=== PATIENT | female | born 1980 | race Caucasian/White ===

== ENCOUNTER 2020-12-25 22:59 | Observation (INO) ==
[2020-12-25] MEDS ORDERED: *HR* LORazepam 2 MG/ML VIAL ONE (23:23)
[2020-12-25] MEDS ORDERED: Haloperidol Lactate 5 MG/ML VIAL IM ONE (23:24)
[2020-12-25] MEDS ORDERED: *HR* LORazepam 2 MG/ML VIAL IM ONE (23:24)
[2020-12-26 01:19] LABS: Basophils % 0.3 %; Eosinophils # 0.1 K/mcL (0.0-0.6); Eosinophils % 0.6 %; Hematocrit 41.2 % (35.3-44.9); Hemoglobin 13.7 g/dL (11.5-15.4); Immature Granulocytes % 0.2 % (0-4); Lymphocytes # 2.7 K/mcL (0.6-4.6); Lymphocytes % 25.6 %; Mean Corpuscular HGB Conc 33.3 g/dL (31.6-35.5); Mean Corpuscular Hemoglobin 29.8 pg (28.0-33.3); Mean Corpuscular Volume 89.8 fL (83.0-100.0); Mean Platelet Volume 10.3 fL (9.4-12.4); Monocytes # 0.5 K/mcL (0.0-1.3); Monocytes % 4.6 %; Neutrophils # 7.1 K/mcL (1.6-8.9); Platelet Count 278 K/mcL (140-400); Red Blood Count 4.59 M/mcL (3.82-4.97); Red Cell Distribution Width 13.5 % (11.5-14.5); Segmented Neutrophils % 68.7 %; White Blood Count 10.4 K/mcL (4.3-11.1)
[2020-12-26 01:29] LABS: Acetaminophen < 10 mcg/mL (10-20); Alanine Aminotransferase 20 Units/L (7-52); Albumin 4.3 g/dL (3.5-5.7); Albumin/Globulin Ratio 1.5 (1.1-2.2); Alkaline Phosphatase 57 Units/L (34-104); Aspartate Amino Transferase 28 Units/L (13-39); BUN/Creatinine Ratio 10 (6-26); Bilirubin,Direct 0.1 mg/dL (0.0-0.2); Bilirubin,Indirect 0.4 mg/dL (0.0-1.0); Bilirubin,Total 0.5 mg/dL (0.3-1.0); Blood Urea Nitrogen 7 mg/dL (6-20); Calcium 9.4 mg/dL (8.6-10.3); Carbon Dioxide 25 mEq/L (23-29); Chloride 107 mEq/L (98-107); Ethanol < 10 mg/dL (Less than 10); Globulin 2.9 g/dL (2.4-3.5); Glucose 99 mg/dL (70-105); Osmolality,Calculated 288 (280-300); Potassium 3.2 mEq/L (3.5-5.1); Salicylate < 2.5 mg/dL (15.0-30.0); Sodium 140 mEq/L (136-145); Total Protein 7.2 g/dL (6.4-8.9); eGFR For African Americans > 60 (> 60); eGFR For Non-African Americans > 60 (> 60)
[2020-12-26 01:59] LABS: Bilirubin,Urine Negative (Negative); Blood,Urine Negative (Negative); Clarity,Urine Clear (Clear); Color,Urine Light-Yellow (Yellow); Glucose,Urine (UA) Normal (Normal); Ketones,Urine Negative (Negative); Leukocyte Esterase,Urine Negative (Negative); Nitrite,Urine Negative (Negative); Protein,Urine Negative (Neg-Trace); Specific Gravity,Urine 1.011 (1.010-1.025); Urobilinogen,Urine Normal (Normal)
[2020-12-26 02:18] LABS: Amphetamine Screen,Urine Negative ng/mL (Cutoff=1000); Barbiturate Screen,Urine Negative ng/mL (Cutoff=200); Benzodiazepines Screen,Urine Negative ng/mL (Cutoff=200); Cannabinoid Screen,Urine Negative ng/mL (Cutoff = 50); Cocaine Screen,Urine Negative ng/mL (Cutoff= 300); Opiate Screen,Urine Negative ng/mL (Cutoff=300); Phencyclidine Screen,Urine Negative ng/mL (Cutoff=25)
[2020-12-26] MEDS ORDERED: Potassium Chloride Elixir 20 MEQ/15 ML UDC PO ONE (03:38)
[2020-12-26] MEDS ORDERED: Ziprasidone 10 MG in Water for inj. (sterile) 0.5 ML IM ONE (13:31)
[2020-12-26] MEDS ORDERED: Haloperidol Lactate 5 MG/ML VIAL IM PRN (17:33)
[2020-12-26] MEDS ORDERED: traZODone 50 MG TABLET PO PRN (17:33)
[2020-12-26] MEDS ORDERED: *HR* LORazepam 1 MG TABLET PO PRN (17:33)
[2020-12-26] MEDS ORDERED: hydrOXYzine pamoate 25 MG CAPSULE PO PRN (17:33)
[2020-12-26] MEDS ORDERED: *HR* LORazepam 2 MG/ML VIAL IM PRN (17:33)
[2020-12-26] MEDS ORDERED: haloperidoL 5 MG TABLET PO PRN (17:33)
[2020-12-26] MEDS ORDERED: Acetaminophen 325 MG TABLET PO PRN (17:33)
[2020-12-26] MEDS ORDERED: Nicotine 21 MG PATCH.TD24 TD SCH (17:45)
[2020-12-26] MEDS ORDERED: chlorproMAZINE 25 MG TABLET PO STA (19:43)
[2020-12-27] MEDS: Nicotine 2 MG GUM BC PRN ×3 (08:05→13:22)
[2020-12-27 08:54] VITALS: BP 127/88
[2020-12-27] MEDS ORDERED: hydrOXYzine pamoate 25 MG CAPSULE PO PRN (10:57)
== END 2020-12-27 14:20 | disposition home or self-care (01) ==
LOC: EMEROOARM 22:59 → INTOOBSV 12-26 17:31 → 1ANU 12-26 17:31
PROVIDERS: ADMIT Psychiatry & Neurology Psychiatry; ATTEND Psychiatry & Neurology Psychiatry